=== PATIENT | male | born 1965 | race Caucasian/White ===

== ENCOUNTER 2017-02-14 19:17 | Emergency (ER) | payer BC ==
[2017-02-14 20:01] VITALS: BP 150/92
--- NOTE | 2017-02-14 20:17 | UC ---
Skin Complaint HPI - HPI Summary HPI Summary: 51 year old male presents with complains of rash all over his body. - History of Current Complaint Chief Complaint: UCSkin Time Seen by Provider: 02/14/17 20:07 Stated Complaint: RASH ON HANDS AND FEET Hx Obtained From: Patient Onset/Duration: Lasting Days Skin Exposure Onset/Duration: Days Ago Onset Severity: Moderate Current Severity: Moderate - Allergy/Home Medications Allergies/Adverse Reactions: Allergies Allergy/AdvReac Type Severity Reaction Status Date / Time No Known Allergies Allergy Verified 08/20/12 09:41 Home Medications: Home Medications [id number] [Nyquil Severe Cold/Flu 5-6.25-10-325 mg/15Ml] 02/14/17 [History] Review of Systems Constitutional: Negative Skin: Rash Eyes: Negative ENT: Negative Respiratory: Negative Cardiovascular: Negative Gastrointestinal: Negative Genitourinary: Negative Motor: Negative Neurovascular: Negative Musculoskeletal: Negative Neurological: Negative Psychological: Negative All Other Systems Reviewed And Are Negative: Yes PMH/Surg Hx/FS Hx/Imm Hx - Surgical History Surgical History: Yes Surgery Procedure, Year, and Place: spleen removed - Social History Alcohol Use: Weekly Substance Use Type: None Smoking Status (MU): Never Smoked Tobacco Physical Exam Triage Information Reviewed: Yes Vital Signs: Initial Vital Signs Temp 37.1 C 02/14/17 19:53 Pulse 80 02/14/17 19:53 Resp 16 02/14/17 19:53 BP 150/92 02/14/17 19:53 Pulse Ox 98 02/14/17 19:53 Vital Signs Reviewed: Yes Eye Exam: Normal ENT Exam: Normal Dental Exam: Normal Neck exam: Normal Neck: Positive: 1 Respiratory Exam: Normal Cardiovascular Exam: Normal Abdominal Exam: Normal Musculoskeletal Exam: Normal Neurological Exam: Normal Psychological Exam: Normal Skin: Positive: rashes Course/Dx - Diagnoses Provider Diagnoses: scabies. rash Discharge - Discharge Plan Condition: Stable Disposition: HOME Prescriptions: hydrOXYzine HCL TAB* [Atarax 10 MG TAB*] 10 mg PO TID PRN #30 tab PRN Reason: Rash Permethrin [Elimite] 5 % EX . DIRECTED #2 tube predniSONE TAB* [Deltasone TAB*] 40 mg PO DAILY #10 tab Patient Education Materials: Scabies (ED), Acute Rash (ED) Referrals: Memo Sears MD [Primary Care Provider] - Brandy Loco [Medical Doctor] -
[2017-02-14] MEDS ORDERED: predniSONE TAB* 20 MG PO ONE (20:22)
[2017-02-14] MEDS ORDERED: Hydrocortisone 1% CREAM* 30 GM TUBE TOPICAL ONE (20:23)
[2017-02-14] MEDS ORDERED: LoraTADine TAB(NF) 10 MG TAB (AUTOSUB to CETIRIZINE) PO ONE (20:23)
== END 2017-02-14 20:51 | disposition home or self-care (01) ==
LOC: UCEAST 19:17
DX: B86 Scabies (principal); R21 Rash and other nonspecific skin eruption
CPT/HCPCS: 99203; A9270-GY; G0463; J7512

== ENCOUNTER 2018-04-20 07:56 | Emergency (ER) | payer BC ==
--- NOTE | 2018-04-20 08:25 | UC ---
General HPI - HPI Summary HPI Summary: HAS HAD ABOUT A WEEK OF COUGH AND CONGESTION. LAST NIGHT FELT WORSE. DIDN'T EAT MUCH IN THE AFTERNOON OR EVENING. THIS MORNING HAD A POP TART AND A DIET PEPSI. TOOK SOME DAYQUIL. WHILE AT WORK SUDDENLY FELT VERY WEAK AND UNSTEADY ON HIS FEET. ARRIVED AT LOOKING PALE AND DIAPHORETIC. PATIENT WAS SLURRING SPEECH A LITTLE BIT. FELT LIKE HE COULDN'T STAND UP. FOUND TO BE BRADYCARDIC IN THE 50S WITH A BLOOD PRESSURE OF 91/57. NO SIGNIFICANT PAST MEDICAL HISTORY OTHER THAN SPLENECTOMY FOR BENIGN GROWTH. - History of Current Complaint Stated Complaint: WEAKNESS Time Seen by Provider: 04/20/18 08:01 Hx Obtained From: Patient, Family/Diet Aide - Onset/Duration: Sudden Onset, Lasting Hours, Still Present Timing: Constant Onset Severity: Moderate Current Severity: Moderate Pain Intensity: 0 Associated Signs & Symptoms: Positive: Cough, Weakness. Negative: Chest Pain, Dizziness, Nausea, SOB, Trauma - Allergy/Home Medications Allergies/Adverse Reactions: Allergies Allergy/AdvReac Type Severity Reaction Status Date / Time No Known Allergies Allergy Verified 08/20/12 09:41 PMH/Surg Hx/FS Hx/Imm Hx - Additional Past Medical History Additional PMH: SPLENECTOMY - Surgical History Surgical History: Yes Surgery Procedure, Year, and Place: spleen removed - Social History Alcohol Use: Weekly Substance Use Type: None Smoking Status (MU): Never Smoked Tobacco Review of Systems All Other Systems Reviewed And Are Negative: Yes Constitutional: Positive: Negative Skin: Positive: Other - CLAMMY Respiratory: Positive: Negative Cardiovascular: Positive: Negative Gastrointestinal: Positive: Negative Neurological: Positive: Weakness Physical Exam Triage Information Reviewed: Yes Appearance: No Pain Distress, Well-Nourished, Other: - PALE Vital Signs: Initial Vital Signs Temp 96.8 F 04/20/18 08:01 Pulse 52 04/20/18 08:01 Resp 16 04/20/18 08:01 BP 91/57 04/20/18 08:01 Pulse Ox 95 04/20/18 08:01 Vital Signs Reviewed: Yes Eyes: Positive: Conjunctiva Clear ENT: Positive: Hearing grossly normal, Pharynx normal, TMs normal Neck: Positive: Supple, Nontender, No Lymphadenopathy Respiratory Exam: Normal Cardiovascular: Positive: Bradycardia Abdomen Description: Positive: Soft Musculoskeletal: Positive: No Edema Neurological: Positive: Alert, Other: - CN II-XII GROSSLY INTACT BILATERALLY. RAPID ALTERNATING MOVEMENTS INTACT. 5/5 STRENGTH. FINGER TO NOSE INTACT. Psychological: Positive: Normal Response To Family, Age Appropriate Behavior Skin: Positive: Other - DIAPHORETIC Diagnostics - EKG Cardiac Rate: Bradycardia - 53 BPM Cardiac Rhythm: Sinus: Normal Ectopy: None ST Segment: Normal Course/Dx - Course Course Of Treatment: TO [facility] BY AMBULANCE - Diagnoses Provider Diagnosis: Weakness, Hypotensive episode - Physician Notifications Discussed Patient Care With: Familia Sidhu - TO [facility] BY AMBULANCE Time Discussed With Above Provider: 08:20 Instructed by Provider To: MD Will See In ED Discharge - Sign-Out/Discharge Documenting (check all that apply): Patient Departure All imaging exams completed and their final reports reviewed: No Studies - Discharge Plan Condition: Stable Disposition: TRANS HIGHER LVL OF CARE FAC Referrals: Memo Sears MD [Primary Care Provider] - - Billing Disposition and Condition Condition: STABLE Disposition: Trans Higher Lvl of Care Fac
[2018-04-20 08:26] VITALS: BP 105/66
[2018-04-20] MEDS ORDERED: NS 0.9% 1000 ML** 1,000 ML IV SCH (08:30)
== END 2018-04-20 08:38 | disposition short-term general hospital (02) ==
LOC: UCEAST 07:56
DX: R53.1 Weakness (principal); I95.9 Hypotension, unspecified; R00.1 Bradycardia, unspecified; R61 Generalized hyperhidrosis
CPT/HCPCS: 93005; 96360; 99213; G0463